=== PATIENT | female | born 1935 | race Caucasian/White ===

== ENCOUNTER → 2017-01-30 | Outpatient (CLI) | payer MEDICARE, BC ==
[~2017-01-30] MED LIST: AMBIEN 5MG TABLE5 MG PO; ASPIRIN 32325 MG/TAB PO; ASPIRIN 81M81 MG/TA2 PO; AZULFIDINE500 MG/TAB PO; CALCIUM + D 6001 TAB PO; CELEBREX 200MG200 MG PO; COSOPT EYE DROPS OU; GLUCOSAMINE500 MG PO; MULTAQ400 MG PO; MULTIPLE VITAMI1 CAP PO; NORCO 325 MG-51 TAB PO; VITAMIN D31000 IU PO; VITAMIND3 5000 PO; XALATAN EYE DROPS OU
== END ==
LOC: COL.RAD 13:45
DX: M79.605 Pain in left leg (principal)

== ENCOUNTER → 2018-08-04 | Outpatient (CLI) | payer MEDICARE, BC | LOC: COL.RAD 08:29 | DX: M47.812 Spondylosis without myelopathy or radiculopathy, cervical region (principal); M48.02 Spinal stenosis, cervical region ==

== ENCOUNTER 2019-10-25 09:39 | Emergency (ER) | payer MEDICARE, BC ==
[~2019-10-25] VITALS: Ht 152.4 cm; Wt 52.7 kg
[2019-10-25 09:47] VITALS: TEMP 97.8
[2019-10-25] MEDS ORDERED: CALCIUM 600MG+D1 TAB PO (09:52)
[2019-10-25] MEDS ORDERED: COSOPT 2%-0.5%10 ML OU (09:54)
[2019-10-25] MEDS ORDERED: GLUCOSAMIN 500 (09:55)
[2019-10-25] MEDS ORDERED: OCUVITE1 TA1 PO (09:56)
[2019-10-25 10:15] LABS: BASO # 0.1 (0.0-0.2); EOS # 0.4 (0.0-0.7); EOS % 5.7 % (0-4.0); GRAN # 4.2 (1.4-6.5); GRAN % 68.6 % (42.2-75.2); LYMPH # 0.9 (1.2-3.4); LYMPH % 15.4 % (20.0-51.0); MEAN CELL VOLUME 92 fl (80.0-100.0); MEAN CORPUSCULAR HEMOGLOBIN 31 pg (27.0-31.0); MEAN CORPUSCULAR HGB CONC 34 g/dl (33.0-37.0); MEAN PLATELET VOLUME 8.6 fl (7.4-10.4); MONO # 0.6 (0.1-0.6); PLATELET COUNT 327 K/mm3 (130-400); RED BLOOD COUNT 3.83 M/mm3 (4.10-5.30); REDCELL DISTRIBUTION WIDTH-CV 12.7 % (11.5-14.5)
[2019-10-25 10:16] LABS: HEMATOCRIT 35.4 % (37.0-47.0)
[2019-10-25 10:21] LABS: INR 0.9 (0.8-3.0)
[2019-10-25 10:26] LABS: ALBUMIN 4.2 gm/dL (3.5-5.0); BILIRUBIN,TOTAL 0.7 mg/dL (0.0-1.0); CALCIUM 9.3 mg/dL (8.4-10.2); CREATININE, serum 0.67 (0.52-1.25)
[2019-10-25] MEDS ORDERED: NORCO 325 MG-51 TAB PO (11:19)
--- NOTE | 2019-10-25 13:53 | NUR ---
lay out worker met with patient to discuss discharge planning. Patient fell while at the [facility] and fractured her humerus. Nursing staff states patient is not steady on her feet and requires assistance to ambulate and perform activities of daily living. Worker and patient discussed the need for 24 hour care and offered nursing facilities choices. Patient chose [facility] as she had been there previously. Patient signed Choice Form. Worker provided a referral to [facility] and Valeria met with patient and discussed private pay costs. Valeria accepts patient to private pay at [facility] and will transport today at 2:00. Worker collaborated with patient's nurse and physician regarding the above information. Worker assisted patient with telephone calls. Patient states she will call her friends once she arrives at [facility].
[2019-10-25 14:15] VITALS: BP 136/89; PULSE 68
== END 2019-10-25 14:25 | disposition home or self-care (01) ==
LOC: COL.ER 09:39
PROVIDERS: Emergency Medicine
DX: S42.301A Unspecified fracture of shaft of humerus, right arm, initial encounter for closed fracture (principal); Z79.82 Long term (current) use of aspirin; W01.0XXA Fall on same level from slipping, tripping and stumbling without subsequent striking against object, initial encounter; Y92.009 Unspecified place in unspecified non-institutional (private) residence as the place of occurrence of the external cause
CPT/HCPCS: J2405; J3010

== ENCOUNTER 2021-11-06 16:51 | Emergency (ER) | payer MEDICARE, BC ==
[~2021-11-06] VITALS: Ht 152.4 cm; Wt 54.1 kg
[~2021-11-06 16:51] MED LIST changes: +CALCIUM 600MG+D1 TAB PO; +COSOPT 2%-0.5%10 ML OU; +GLUCOSAMIN 500; +OCUVITE1 TA1 PO
[2021-11-06 17:48] LABS: BASO # 0.1 K/mm3 (0.0-0.2); BASO % 1.1 % (0.0-2.0); EOS # 0.5 K/mm3 (0.0-0.7); EOS % 5.4 % (0.0-4.0); GRAN # 5.5 K/mm3 (1.4-6.5); GRAN % 61.6 % (42.2-75.2); HEMOGLOBIN 12.3 g/dl (12.5-16.0); LYMPH # 1.8 K/mm3 (1.2-3.4); LYMPH % 20.3 % (20.0-51.0); MEAN CELL VOLUME 85 fl (80.0-100.0); MEAN CORPUSCULAR HEMOGLOBIN 30 pg (27-31); MEAN CORPUSCULAR HGB CONC 35 g/dl (33.0-37.0); MEAN PLATELET VOLUME 8.4 fl (7.4-10.4); MONO % 11.3 % (1.7-9.3); PLATELET COUNT 368 K/mm3 (130-400); RED BLOOD COUNT 4.09 M/mm3 (4.10-5.30); REDCELL DISTRIBUTION WIDTH-CV 13.2 % (11.5-14.5)
[2021-11-06 17:50] LABS: HEMATOCRIT 34.8 % (37.0-47.0)
[2021-11-06 18:05] LABS: ALANINE AMINOTRANSFERASE 26 U/L (0-55); ALBUMIN 3.9 gm/dL (3.4-4.8); ALKALINE PHOSPHATASE 98 U/L (40-150); ANION GAP 8 mmol/L (7-16); AST,SGOT 29 U/L (5-34); BILIRUBIN,TOTAL 0.4 mg/dL (0.2-1.2); BLOOD UREA NITROGEN 17 mg/dL (10-20); CALCIUM 9.3 mg/dL (8.4-10.2); CARBON DIOXIDE 22 mmol/L (23-31); CHLORIDE 97 mmol/L (98-107); CREATININE, serum 0.76 mg/dL (0.57-1.11); GLUCOSE 115 mg/dL (70-99); SODIUM 127 mmol/L (136-145); TOTAL PROTEIN 6.6 gm/dL (6.2-8.1)
[2021-11-06 18:11] LABS: TROPONIN-I < 0.010 ng/mL (0.00-0.033)
[2021-11-06 21:25] VITALS: BP 132/98; PULSE 113; TEMP 98.2
== END 2021-11-06 21:25 | disposition home or self-care (01) ==
LOC: COL.ER 16:51
PROVIDERS: Nurse Practitioner Family
DX: R00.0 Tachycardia, unspecified (principal); R42 Dizziness and giddiness; R79.1 Abnormal coagulation profile; I48.91 Unspecified atrial fibrillation; Z79.899 Other long term (current) drug therapy
CPT/HCPCS: J7040; Q9967

== ENCOUNTER 2021-11-13 15:53 | Inpatient (IN) | payer MEDICARE, BC ==
[~2021-11-13] VITALS: Ht 152.4 cm; Wt 54.1 kg
[2021-11-13 16:35] LABS: BASO # 0.1 K/mm3 (0.0-0.2); BASO % 0.9 % (0.0-2.0); EOS # 0.6 K/mm3 (0.0-0.7); EOS % 6.9 % (0.0-4.0); GRAN # 5.7 K/mm3 (1.4-6.5); HEMATOCRIT 35.5 % (37.0-47.0); HEMOGLOBIN 12.1 g/dl (12.5-16.0); LYMPH # 1.5 K/mm3 (1.2-3.4); LYMPH % 16.9 % (20.0-51.0); MEAN CELL VOLUME 86 fl (80.0-100.0); MEAN CORPUSCULAR HEMOGLOBIN 29 pg (27-31); MEAN CORPUSCULAR HGB CONC 34 g/dl (33.0-37.0); MEAN PLATELET VOLUME 8.4 fl (7.4-10.4); MONO % 11.1 % (1.7-9.3); PLATELET COUNT 364 K/mm3 (130-400); RED BLOOD COUNT 4.11 M/mm3 (4.10-5.30); REDCELL DISTRIBUTION WIDTH-CV 13.4 % (11.5-14.5)
[2021-11-13 16:41] LABS: PROTHROMBIN TIME 10.5 SECONDS (9.7-12.8)
[2021-11-13 16:43] LABS: PARTIAL THROMBOPLASTIN TIME 27.3 SECONDS (26.0-37.0)
[2021-11-13 16:52] LABS: ALANINE AMINOTRANSFERASE 17 U/L (0-55); ALBUMIN 3.8 gm/dL (3.4-4.8); ALKALINE PHOSPHATASE 95 U/L (40-150); ANION GAP 8 mmol/L (7-16); AST,SGOT 21 U/L (5-34); BILIRUBIN,TOTAL 0.4 mg/dL (0.2-1.2); BLOOD UREA NITROGEN 18 mg/dL (10-20); CALCIUM 9.2 mg/dL (8.4-10.2); CARBON DIOXIDE 23 mmol/L (23-31); CHLORIDE 100 mmol/L (98-107); CREATININE, serum 0.74 mg/dL (0.57-1.11); GLUCOSE 89 mg/dL (70-99); POTASSIUM 4.3 mmol/L (3.5-4.5); SODIUM 131 mmol/L (136-145); TOTAL PROTEIN 6.5 gm/dL (6.2-8.1)
[2021-11-13 17:05] LABS: TROPONIN-I < 0.010 ng/mL (0.00-0.033)
[2021-11-13 19:44] LABS: TSH w REFLEX 3.425 uIU/mL (0.350-4.940)
--- NOTE | 2021-11-13 23:15 | NUR ---
Received report from ED. Patient admitted, oriented to room and started on fluids. Patient here for loss of balance, afib with RVR, but questioning that diagnosis. Assessment performed. Lungs CTA, bowel sounds present, and denies pain at this time. Patient resting in bed with call light near.
[2021-11-14] VITALS (16 sets, daily range): BP systolic 94–150; BP diastolic 58–667; PULSE 61–120; TEMP 97.2–98.2
[2021-11-14 01:59] LABS: COLLECTION METHOD CLEAN CATCH
[2021-11-14 02:04] LABS: MUCOUS Present (NOT PRESENT); PH 6 (5-8); SQUAMOUS EPITHELIAL None Seen /hpf (0-10); URINE APPEARANCE Clear (CLEAR/HAZY); URINE BACTERIA None Seen /hpf (NONE SEEN); URINE BILIRUBIN Negative (NEGATIVE); URINE BLOOD Negative (NEGATIVE); URINE COLOR Yellow (YELLOW); URINE GLUCOSE Negative (NEGATIVE); URINE KETONE Negative (NEGATIVE); URINE LEUKOCYTE ESTERASE Negative (NEGATIVE); URINE NITRATE Negative (NEGATIVE); URINE PROTEIN(semi-quant) Negative (NEGATIVE); URINE RBC 0-2 /hpf (0-2); URINE UROBILINOGEN Negative (NEGATIVE)
--- NOTE | 2021-11-14 05:32 | NUR ---
Patient's HR was running in the 140's and 150's and spiking in 160's. Charge nurse called Phuong for guidance. Phuong ordered a STAT EKG and lopressor. EKG revealed atrial flutter/ tachycardia with RVR. Patient was asymptomatic, denied chest pain. VS taken before and after lopressor. Will continue to monitor.
[2021-11-14 06:19] LABS: BASO # 0.1 K/mm3 (0.0-0.2); BASO % 1.4 % (0.0-2.0); EOS # 0.6 K/mm3 (0.0-0.7); EOS % 9.8 % (0.0-4.0); GRAN # 3.1 K/mm3 (1.4-6.5); GRAN % 54.5 % (42.2-75.2); HEMOGLOBIN 11.5 g/dl (12.5-16.0); LYMPH # 1.3 K/mm3 (1.2-3.4); LYMPH % 22.5 % (20.0-51.0); MEAN CELL VOLUME 88 fl (80.0-100.0); MEAN CORPUSCULAR HEMOGLOBIN 30 pg (27-31); MEAN CORPUSCULAR HGB CONC 34 g/dl (33.0-37.0); MEAN PLATELET VOLUME 9.1 fl (7.4-10.4); MONO # 0.7 K/mm3 (0.1-0.6); MONO % 11.5 % (1.7-9.3); PLATELET COUNT 324 K/mm3 (130-400); REDCELL DISTRIBUTION WIDTH-CV 13.7 % (11.5-14.5)
[2021-11-14 06:21] LABS: HEMATOCRIT 33.6 % (37.0-47.0)
[2021-11-14 06:25] LABS: CALCIUM 8.4 mg/dL (8.4-10.2); CREATININE, serum 0.69 mg/dL (0.57-1.11); POTASSIUM 4.3 mmol/L (3.5-4.5)
--- NOTE | 2021-11-14 09:45 | NUR ---
Assessment completed, alert/oriented, denies chest pain or discomfort, heart irregular/ tachycardi, hx of A.fib and on [place], denies any resp.difficulty and lungs CTA, she is up abulating with PT this moring without difficulty, I have ordered her breakfast and she has taken her morning meds, she wants to go home, denies other needs at this time, will continue to monitor
--- NOTE | 2021-11-14 09:57 | NUR ---
Miner Placer met with patient to discuss discharge planning. Patient lives alone in [place] and sees Dr. Chavez for primary care. Patient obtains medications from [facility] with no difficulties and uses a cane for ambulation. Patient denies any other DME use and is independent with ADLS. Patient is not , has no children, and no living siblings or parents. Patient states her DPOA-HC is throught [facility] in [place]. SW contacted [facility] [employer] [facility] and they are going to fax over a copy. Patient states she plans to return home at time of discharge and remarks that if she gets discharged soon enough, she plans to go into work at the [employer]. Discharge Plan: Home
--- NOTE | 2021-11-14 13:49 | NUR ---
Copy of patient's DPOA-HC paperwork stickered and placed in chart.
--- NOTE | 2021-11-14 14:30 | NUR ---
Patient started on Amiodarone gtt/ bolus given, patient tolerating well and vital signs stable, denies any needs or concerns, will continue to monitor
--- NOTE | 2021-11-14 21:30 | NUR ---
Patient is in chair, watching TV, asked for some iced water, provided. Getting NS at 75 ml/hr and cordaron 17.2 ml/hr. Telemetry in place, NSR 80'S. Assessment completed, refused scheduled medications. No other needs at this time. Call light within reach.
[2021-11-15] VITALS (9 sets, daily range): BP systolic 131–157; BP diastolic 51–88; PULSE 55–69; TEMP 97.5–98.2
[2021-11-15 06:08] LABS: BASO # 0.1 K/mm3 (0.0-0.2); BASO % 1.1 % (0.0-2.0); EOS # 0.5 K/mm3 (0.0-0.7); EOS % 7.2 % (0.0-4.0); GRAN # 4.7 K/mm3 (1.4-6.5); HEMOGLOBIN 11.3 g/dl (12.5-16.0); LYMPH % 14.3 % (20.0-51.0); MEAN CELL VOLUME 87 fl (80.0-100.0); MEAN CORPUSCULAR HEMOGLOBIN 30 pg (27-31); MEAN CORPUSCULAR HGB CONC 35 g/dl (33.0-37.0); MEAN PLATELET VOLUME 9.9 fl (7.4-10.4); MONO # 0.8 K/mm3 (0.1-0.6); PLATELET COUNT 279 K/mm3 (130-400); RED BLOOD COUNT 3.73 M/mm3 (4.10-5.30); REDCELL DISTRIBUTION WIDTH-CV 13.6 % (11.5-14.5)
[2021-11-15 06:09] LABS: HEMATOCRIT 32.4 % (37.0-47.0)
[2021-11-15 06:23] LABS: CALCIUM 8.5 mg/dL (8.4-10.2); CREATININE, serum 0.7 mg/dL (0.57-1.11); POTASSIUM 3.9 mmol/L (3.5-4.5)
--- NOTE | 2021-11-15 06:23 | NUR ---
Patient has had a calm night. Her HR has been 55-65. NSR. Continue receiving NS and cordaron. Has been NPO. Report will be given to day RN.
--- NOTE | 2021-11-15 07:59 | NUR ---
DEONNA DARDEN NOTIFIED OF EKG SHOWING SINUS PATRICIA AND PT ON AMIO GTT, TOLD TO DEFER TO CARDIOLOGY, SHILO RN WITH CARDIOLOGY NOTIFIED AND STATED "WE PLAN TO SWITCH TO PO TODAY, GO AHEAD AND HANG THE NEW BAG, THE HR WILL BE FINE LONG SHE'S NOT LIGHT HEADED OR DIZZY".
--- NOTE | 2021-11-15 08:00 | NUR ---
PT PLEASANT, AOX4, REPORTS HEADACHE, PROVIDER NOTIFIED AND TYLENOL ORDER OBTAINED, TYLENOL GIVEN, AMIO GTT STOPPED PER ORDER, MEDICATIONS GIVEN, ASSESSMENT PERFORMED, IV NOT LEAKING AT THIS TIME, CDI W/O ERYTHEMA, NO OTHER NEEDS
[2021-11-15] MEDS ORDERED: CORDARONE200 MG/TAB PO (09:34)
--- NOTE | 2021-11-15 11:51 | NUR ---
DISCHARGE EDUCATION PROVIDED TO PT, IV REMOVED, TELEMETRY REMOVED, PT INDEPENDENT IN DRESSING AND AMBULATING, NO QUESTIONS AT THIS TIME
--- NOTE | 2021-11-15 12:12 | NUR ---
PT ESCORTED OUT VIA WHEELCHAIR WITH PT BELONGINGS, NO OTHER NEEDS
--- NOTE | 2021-11-15 13:10 | NUR ---
First visit from the sld inclusion teacher. No needs right now.
== END 2021-11-15 12:50 | disposition home or self-care (01) | DRG 309 ==
LOC: COL.ER 15:53 → MEDICAL 19:06
PROVIDERS: Family Medicine; Nurse Practitioner Family; Physician Assistant; ADMIT Internal Medicine
DX: I47.1 Supraventricular tachycardia (principal); E87.1 Hypo-osmolality and hyponatremia; I48.92 Unspecified atrial flutter; I25.10 Atherosclerotic heart disease of native coronary artery without angina pectoris; M19.90 Unspecified osteoarthritis, unspecified site; H35.30 Unspecified macular degeneration; F32.A Depression, unspecified; D64.9 Anemia, unspecified; I44.0 Atrioventricular block, first degree; I10 Essential (primary) hypertension; I48.0 Paroxysmal atrial fibrillation; Z96.641 Presence of right artificial hip joint; Z96.651 Presence of right artificial knee joint; Z79.82 Long term (current) use of aspirin; Z85.3 Personal history of malignant neoplasm of breast; Z23 Encounter for immunization; Z85.118 Personal history of other malignant neoplasm of bronchus and lung
CPT/HCPCS: OP; 99233-AI; A9575; G0378; J0282; J1650; J7030; J7060; J7120

== ENCOUNTER 2022-01-31 08:05 | Outpatient (CLI) | payer MEDICARE, BC ==
[~2022-01-31] VITALS: Ht 152.5 cm; Wt 54.4 kg
[~2022-01-31 08:05] MED LIST changes: +CORDARONE200 MG/TAB PO
[2022-01-31 09:02] VITALS: BP 177/86; PULSE 59; TEMP 98.3
[2022-01-31] MEDS ORDERED: CEPHALEXIN500 M1 PO (09:22)
[2022-01-31] MEDS ORDERED: CORDARONE200 MG/TAB PO (09:26)
[2022-01-31 11:06] VITALS: BP 173/82; PULSE 57
--- NOTE | 2022-01-31 11:07 | NUR ---
Discharge instructions given to pt.Pt verbalizes understanding.Pt escorted out via wheelchair by this nurse.
== END 2022-01-31 11:10 ==
LOC: COL.CAR 08:05
DX: I48.0 Paroxysmal atrial fibrillation (principal); I34.9 Nonrheumatic mitral valve disorder, unspecified; I27.20 Pulmonary hypertension, unspecified; E78.2 Mixed hyperlipidemia; Z79.899 Other long term (current) drug therapy; Z79.82 Long term (current) use of aspirin
CPT/HCPCS: 27886; C1764

== ENCOUNTER 2023-09-27 13:28 | Emergency (ER) | payer MEDICARE, BC ==
[~2023-09-27] VITALS: Ht 152.4 cm; Wt 53.6 kg
[~2023-09-27 13:28] MED LIST changes: +CEPHALEXIN500 M1 PO
[2023-09-27 13:34] VITALS: TEMP 96.9
[2023-09-27] MEDS ORDERED: NS 1,000 ML IV ONE (14:00)
[2023-09-27] MEDS ORDERED: Ondansetron 4 MG/2 ML VIAL IV PRN (14:00)
[2023-09-27] MEDS ORDERED: fentaNYL 50 MCG/ML 2 ML VIAL IV PRN (14:00)
[2023-09-27 14:01] LABS: BASO % 0.4 % (0.0-2.0); EOS % 0.2 % (0.0-4.0); GRAN # 8.1 K/mm3 (1.4-6.5); GRAN % 79.9 % (42.2-75.2); HEMATOCRIT 37.9 % (37.0-47.0); HEMOGLOBIN 12.8 g/dl (12.5-16.0); LYMPH % 9.4 % (20.0-51.0); MEAN CELL VOLUME 85 fl (80.0-100.0); MEAN CORPUSCULAR HEMOGLOBIN 29 pg (27-31); MEAN CORPUSCULAR HGB CONC 34 g/dl (33.0-37.0); MEAN PLATELET VOLUME 8.9 fl (7.4-10.4); MONO % 9.8 % (1.7-9.3); PLATELET COUNT 386 K/mm3 (130-400); RED BLOOD COUNT 4.46 M/mm3 (4.10-5.30); REDCELL DISTRIBUTION WIDTH-CV 14.2 % (11.5-14.5)
[2023-09-27 14:18] LABS: BILIRUBIN,TOTAL 0.9 mg/dL (0.2-1.2); CALCIUM 10.3 mg/dL (8.4-10.2); CREATININE, serum 0.85 mg/dL (0.57-1.11); TOTAL PROTEIN 7.4 gm/dL (6.2-8.1)
[2023-09-27] MEDS ORDERED: Iohexol 300 - 100 ML VIAL IV ONE (15:17)
[2023-09-27] MEDS ORDERED: NS 100 ML IV SCH (15:17)
[2023-09-27] MEDS ORDERED: NORCO 325 MG-51 TAB PO (15:25)
[2023-09-27] MEDS ORDERED: ZOFRAN ODT4 MG PO (15:25)
[2023-09-27] MEDS ORDERED: Mag/Al Hydrox/Simeth Susp 30 ML CUP PO ONE (16:15)
[2023-09-27 17:34] LABS: COLLECTION METHOD CLEAN CATCH
[2023-09-27 17:54] LABS: PH 5.5 (5.0-8.5); URINE APPEARANCE Clear (CLEAR/HAZY); URINE COLOR Yellow (YELLOW); URINE GLUCOSE Negative (NEGATIVE); URINE KETONE TRACE (NEGATIVE); URINE PROTEIN(semi-quant) Negative (NEGATIVE)
[2023-09-27 17:56] LABS: SQUAMOUS EPITHELIAL 0-2 /hpf (0-10); URINE BLOOD TRACE-LYSED (NEGATIVE); URINE NITRATE Negative (NEGATIVE); URINE UROBILINOGEN 0.2 E.U/dL (0.2-1.0)
[2023-09-27 17:57] LABS: URINE RBC None Seen /hpf (0-2)
[2023-09-27 18:27] VITALS: BP 126/90; PULSE 88
== END 2023-09-27 18:38 | disposition home or self-care (01) ==
LOC: COL.ER 13:28
PROVIDERS: Emergency Medicine; Personal Emergency Response Attendant
DX: R10.30 Lower abdominal pain, unspecified (principal); R74.01 Elevation of levels of liver transaminase levels; G89.29 Other chronic pain; M54.50 Low back pain, unspecified; Z79.1 Long term (current) use of non-steroidal anti-inflammatories (NSAID); Z88.5 Allergy status to narcotic agent
CPT/HCPCS: J2405; J3010; J7030; Q9967